=== PATIENT | female | born 1945 | race Caucasian/White ===

== ENCOUNTER 2023-04-25 05:31 | Day surgery (SDC) | payer OTHER, BC ==
[2023-04-21 11:20] VITALS: BMI 32.4
[2023-04-25 10:52] VITALS: TEMP 97.5
[2023-04-25 11:18] VITALS: RESP 20
[2023-04-25 11:31] VITALS: BP 152/99; PULSE 88
== END 2023-04-25 12:00 | disposition home or self-care (01) ==
LOC: JASU-ENDO 05:31
PROVIDERS: ATTEND Internal Medicine Gastroenterology
PROC: 0DBP8ZX Excision of Rectum, Via Natural or Artificial Opening Endoscopic, Diagnostic (ICD-10-PCS; principal; 2023-04-25 10:00)
DX: Z12.11 Encounter for screening for malignant neoplasm of colon (principal); K62.1 Rectal polyp; K57.30 Diverticulosis of large intestine without perforation or abscess without bleeding
CPT/HCPCS: 88305-TC

== ENCOUNTER 2024-09-26 12:10 | Emergency (ER) | payer OTHER, BC ==
[2024-09-26 12:21] VITALS: BP 132/74; PULSE 93; RESP 18; TEMP 98.4; BMI 29.9
[2024-09-26 14:41] LABS: BASO % 1.2 % (0-2.0); EOS % 6.4 % (0-4.5); HEMATOCRIT 39.6 % (32.4-45.2); LYMPH % 25.3 % (8-40); MCH 29.7 pg (25.7-33.7); MCHC 32.7 g/dl (32.0-36.0); MEAN CELL VOLUME 90.8 fl (80-96); MEAN PLT VOLUME 8.4 fl (7.5-11.1); MONO % 10.6 % (3.8-10.2); NEUT % 56.5 % (42.8-82.8); PLATELET COUNT 187 10^3/uL (134-434); RBC 4.37 M/mm3 (3.60-5.2); RDW 13.5 % (11.6-15.6); WHITE BLOOD COUNT 5.6 K/mm3 (4.0-10.0)
[2024-09-26 15:12] LABS: ALBUMIN 3.6 g/dl (3.4-5.0); BLOOD UREA NITROGEN 12.4 mg/dL (7-18); CALCIUM 9.6 mg/dL (8.5-10.1)
[2024-09-26 15:14] LABS: CREATININE 0.8 mg/dL (0.55-1.3)
[2024-09-26 15:17] LABS: BILIRUBIN,TOTAL 1.6 mg/dL (0.2-1); TOT PROT 6.4 g/dl (6.4-8.2)
[2024-09-26 16:03] LABS: HIV INTERPRETATION NEGATIVE (NEGATIVE)
== END 2024-09-26 16:12 | disposition home or self-care (01) ==
LOC: JER 12:10
DX: L03.116 Cellulitis of left lower limb (principal); R60.0 Localized edema
CPT/HCPCS: 36415; 80053; 85025; 86803; 87389; 93970-TC; 99284-25

== ENCOUNTER 2024-11-24 11:45 | Emergency (ER) | payer OTHER, BC ==
[2024-11-24 11:54] VITALS: TEMP 98.1; BMI 33.3
[2024-11-24 13:38] LABS: BASO % 0.8 % (0-2.0); EOS % 3.4 % (0-4.5); HEMATOCRIT 40.8 % (32.4-45.2); HEMOGLOBIN 13.7 GM/dL (10.7-15.3); LYMPH % 23.9 % (8-40); MCH 29.9 pg (25.7-33.7); MCHC 33.5 g/dl (32.0-36.0); MEAN CELL VOLUME 89.4 fl (80-96); MEAN PLT VOLUME 8.1 fl (7.5-11.1); MONO % 10.4 % (3.8-10.2); NEUT % 61.5 % (42.8-82.8); PLATELET COUNT 158 10^3/uL (134-434); RBC 4.57 M/mm3 (3.60-5.2); RDW 13.9 % (11.6-15.6); WHITE BLOOD COUNT 5.1 K/mm3 (4.0-10.0)
[2024-11-24 13:45] VITALS: BP 157/83; PULSE 97; RESP 21
[2024-11-24 13:52] LABS: POTASSIUM 3.9 mmol/L (3.5-5.1)
[2024-11-24 13:54] LABS: ALBUMIN 3.8 g/dl (3.4-5.0); BLOOD UREA NITROGEN 18.7 mg/dL (7-18)
[2024-11-24 13:58] LABS: CREATININE 0.7 mg/dL (0.55-1.3)
[2024-11-24 13:59] LABS: BILIRUBIN,TOTAL 1.4 mg/dL (0.2-1)
[2024-11-24 14:01] LABS: TOT PROT 6.7 g/dl (6.4-8.2)
[2024-11-24 14:48] LABS: HIV INTERPRETATION NEGATIVE (NEGATIVE)
== END 2024-11-24 15:03 | disposition home or self-care (01) ==
LOC: JER 11:45
DX: R07.9 Chest pain, unspecified (principal)
CPT/HCPCS: 36415; 71045-TC-FY; 80053; 84484; 85025; 86803; 87389; 93005; 93010; 99285-25